=== PATIENT | male | born 1985 | race Caucasian/White ===

== ENCOUNTER 2019-07-23 00:51 | Emergency (ER) | payer MEDICARE, MEDICAID ==
--- NOTE | 2019-07-23 04:10 | ED ---
Throat Pain/Nasal Congestion - HPI Summary HPI Summary: Pt is a 33 y/o M presenting to the ED with a chief complaint of L-sided dental pain. He states he began experiencing edema in the L side of his face on the morning of 07/22/19. He developed pain and some chills the night before, on . He denies nausea/vomiting. He has been taking Ibuprofen 800mg q7-8hrs and Tylenol without relief. - History of Current Complaint Chief Complaint: EDDentalPain Time Seen by Provider: 07/23/19 03:55 Hx Obtained From: Patient Onset/Duration: Gradual Onset, Lasting Days, Still Present Severity: Moderate Associated Signs And Symptoms: Positive: Negative - Allergies/Home Medications Allergies/Adverse Reactions: Allergies Allergy/AdvReac Type Severity Reaction Status Date / Time No Known Allergies Allergy Verified 07/23/19 00:57 PMH/Surg Hx/FS Hx/Imm Hx Previously Healthy: Yes Endocrine/Hematology History: Denies: Hx Diabetes Respiratory History: Reports: Hx Asthma - albuterol. Psychiatric History: Reports: Hx Anxiety, Hx Depression Denies: Hx Eating Disorder, Hx of Violent Episodes Against Others - Surgical History Surgery Procedure, Year, and Place: Pt states he has two knee surgeries, and a tonsillectomy. Has also had removal of keloid from chest. Hx Anesthesia Reactions: No - Immunization History Date of Tetanus Vaccine: pt states unsure Date of Influenza Vaccine: never Infectious Disease History: No Infectious Disease History: Denies: Traveled Outside the [place] in Last 30 Days - Family History Known Family History: Positive: Cardiac Disease - CHF, Other - Depression, breast cancer - Social History Alcohol Use: None Hx Substance Use: No Substance Use Type: Reports: None Hx Tobacco Use: Yes Smoking Status (MU): Light Every Day Tobacco Smoker Review of Systems Positive: Chills Positive: Dental Pain Negative: Vomiting, Nausea Positive: Edema All Other Systems Reviewed And Are Negative: Yes Physical Exam - Summary Physical Exam Summary: Constitutional: Well-developed, Well-nourished, Alert. (-) Distressed Skin: Warm, Dry HENT: Edema to L cheek. Tenderness to percussion of L upper molars without fluctuance or induration. No submandibular or sublingual edema. Eyes: Conjunctiva normal Neck: Musculoskeletal ROM normal neck. (-) JVD, (-) Stridor, (-) Tracheal deviation Cardio: Rhythm regular, rate normal, Heart sounds normal; Intact distal pulses. Radial pulses are 2+ and symmetric. (-) Murmur Pulmonary/Chest wall: Effort normal. (-) Respiratory distress, (-) Wheezes, (-) Rales Abd: Soft, (-) tenderness, (-) Distension, (-) Guarding, (-) Rebound Musculoskeletal: (-) Edema Lymph: (-) Cervical adenopathy Neuro: Alert, Oriented x3 Psych: Mood and affect Normal Triage Information Reviewed: Yes Vital Signs On Initial Exam: Initial Vitals Temp Pulse Resp BP Pulse Ox 98.2 F 100 16 122/87 95 07/23/19 00:52 07/23/19 00:52 07/23/19 00:52 07/23/19 00:52 07/23/19 00:52 Vital Signs Reviewed: Yes Procedures - Sedation Patient Received Moderate/Deep Sedation with Procedure: No Diagnostics - Vital Signs Vital Signs Temp Pulse Resp BP Pulse Ox 07/23/19 03:00 99.1 F 87 20 127/69 96 07/23/19 00:52 98.2 F 100 16 122/87 95 - Laboratory Lab Statement: Any lab studies that have been ordered have been reviewed, and results considered in the medical decision making process. EENT Course/Dx - Course Course Of Treatment: Patient is here with a dental infection. Patient is a drainable abscess. Patient has no evidence of deep space neck infection on physical exam or history. Patient was given a dose of Toradol, Peterman, clindamycin here. Patient started on clindamycin and tramadol for pain. - Diagnoses Provider Diagnoses: Dental abscess Discharge ED - Sign-Out/Discharge Documenting (check all that apply): Patient Departure - Discharge Plan Condition: Stable Disposition: HOME Prescriptions: Clindamycin Cap(NF) [Clindamycin Cap 300 mg Cap(NF)] 300 mg PO TID 7 Days #21 cap traMADol TAB* [Ultram*] 50 mg PO Q8HR PRN #12 tab MDD 150 mg PRN Reason: Pain - Severe Patient Education Materials: Dental Abscess (ED) Referrals: [facility] [Outside] Additional Instructions: Please do not take any Ibuprofen for the next 8 hours after you are discharged. Do not take Tylenol for the next 6 hours. After that, resume the regimen you were doing with the Tylenol and Ibuprofen. If it is not helping, you can use the Peterman I have prescribed. Please also take your antibiotics as instructed. Call your dentist in the morning and explain to them that your tooth may need to be extracted. Set up an appointment for follow-up. - Billing Disposition and Condition Condition: STABLE Disposition: Home - Attestation Statements Document Initiated by Mario: Yes Documenting Scribe: Vee Duarte Provider For Whom Mario is Documenting (Include Credential): Adrian Arroyo MD. Scribe Attestation: Vee House, scribed for Adrian Arroyo MD. on 07/23/19 at 0458. Scribe Documentation Reviewed: Yes Provider Attestation: The documentation as recorded by the Vee perez accurately reflects the service I personally performed and the decisions made by me, Adrian Arroyo MD. Status of Scribe Document: Viewed
[2019-07-23] MEDS: Ketorolac INJ* 30 MG/ML 1 ML VIAL IM ONE (04:47)
[2019-07-23] MEDS: Clindamycin CAP* 150 MG PO ONE (04:47)
[2019-07-23] MEDS: HYDROcodone/ACETAMIN 5-325 MG* 1 TAB PO ONE (04:47)
[2019-07-23 04:53] VITALS: BP 119/74
== END 2019-07-23 04:52 | disposition home or self-care (01) ==
LOC: ED 00:51
DX: K04.7 Periapical abscess without sinus (principal); J45.909 Unspecified asthma, uncomplicated; F41.9 Anxiety disorder, unspecified; F32.9 Major depressive disorder, single episode, unspecified; F17.200 Nicotine dependence, unspecified, uncomplicated; Z79.899 Other long term (current) drug therapy
CPT/HCPCS: 96372; 99282; A9270-GY; J1885